=== PATIENT | male | born 1945 | race Caucasian/White ===

== ENCOUNTER 2024-10-31 14:30 | Emergency (ER) | payer MEDICARE ==
[2024-10-31] MEDS: Lidocaine/Epineph/Tetracaine 3 ML Syringe TOP ONE (15:29)
== END 2024-10-31 16:55 | disposition home or self-care (01) ==
LOC: JD.ED 14:30
DX: S01.81XA Laceration without foreign body of other part of head, initial encounter (principal); S80.211A Abrasion, right knee, initial encounter; W01.198A Fall on same level from slipping, tripping and stumbling with subsequent striking against other object, initial encounter; Y93.89 Activity, other specified
CPT/HCPCS: 12011; 70450; 99283; A9270; 99282